=== PATIENT | male | born 1980 | race Caucasian/White ===

== ENCOUNTER 2018-11-11 11:10 | Emergency (ER) | payer OTHER ==
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
[2018-11-11] MEDS ORDERED: IBUPROFEN 600 MG TAB PO ONE (12:01)
[2018-11-11 12:19] VITALS: BP 128/87
== END 2018-11-11 12:20 | disposition home or self-care (01) ==
DX: S42.032A Displaced fracture of lateral end of left clavicle, initial encounter for closed fracture (principal); S09.90XA Unspecified injury of head, initial encounter; V18.0XXA Pedal cycle driver injured in noncollision transport accident in nontraffic accident, initial encounter; Y92.9 Unspecified place or not applicable; Y93.55 Activity, bike riding; Y99.9 Unspecified external cause status